=== PATIENT | male | born 1965 | race Caucasian/White ===

== ENCOUNTER 2017-05-08 21:12 | Emergency (ER) | payer OTHER ==
[2017-05-08 21:17] VITALS: BP 129/81; PULSE 78; RESP 18; TEMP 98.3; O2SAT 98; BMI 27.3
--- NOTE | 2017-05-08 21:33 | ED PDOC ---
Arrival/HPI <Amilcar Harris - Last Filed: 05/08/17 21:43> - General Historian: Patient <Bridget Wallis A - Last Filed: 05/08/17 22:44> - General Chief Complaint: Upper Extremity Problem/Injury Time Seen by Provider: 05/08/17 21:22 - History of Present Illness Narrative History of Present Illness (Text): 05/08/17 21:29 51yo male with no PMhx who present with complaint of left elbow pain s/p trauma a week ago. He notes that he hit his left elbow on the found when he fell a week ago. States it was healing well and he was applying topical abx to the abrasion on the elbow. Notes that he accidentally hit the elbow against his bathroom tile, while cleaning two days ago. Pain started again and area became swollen and red. He denies fever, chills, focal weakness, paresthesia, any other complaint. Did not take any medication. (Bridget Wallis A) Past Medical History - Provider Review Nursing Documentation Reviewed: Yes - Infectious Disease Hx of Infectious Diseases: None - Psychiatric Hx Substance Use: No - Anesthesia Hx Anesthesia: No <Bridget Wallis A - Last Filed: 05/08/17 22:44> Family/Social History - Physician Review Nursing Documentation Reviewed: Yes Family/Social History: Unknown Family HX Smoking Status: Never Smoked Hx Alcohol Use: Yes Frequency of alcohol use: Socially Hx Substance Use: No <Bridget Wallis A - Last Filed: 05/08/17 22:44> Allergies/Home Meds <KimberlyAmilcar - Last Filed: 05/08/17 21:43> <Bridget Wallis A - Last Filed: 05/08/17 22:44> Allergies/Adverse Reactions: Allergies No Known Allergies Allergy (Verified 05/08/17 21:17) Review of Systems - Physician Review All systems were reviewed & negative as marked: Yes - Review of Systems Constitutional: Normal Eyes: Normal ENT: Normal Respiratory: Normal Cardiovascular: Normal Gastrointestinal: Normal Genitourinary Male: Normal Musculoskeletal: Arthralgias (LEft elbow ) Skin: Normal Neurological: Normal Endocrine: Normal Hemo/Lymphatic: Normal Psychiatric: Normal <Bridget Wallis A - Last Filed: 05/08/17 22:44> Physical Exam Vital Signs Reviewed: Yes Temperature: Afebrile Blood Pressure: Normal Pulse: Regular Respiratory Rate: Normal Appearance: Positive for: Well-Appearing, Non-Toxic, Comfortable Pain Distress: None Mental Status: Positive for: Alert and Oriented X 3 - Systems Exam Head: Present: Atraumatic, Normocephalic Pupils: Present: PERRL Extroacular Muscles: Present: EOMI Conjunctiva: Present: Normal Mouth: Present: Moist Mucous Membranes Neck: Present: Normal Range of Motion Respiratory/Chest: Present: Clear to Auscultation, Good Air Exchange. No: Respiratory Distress, Accessory Muscle Use Cardiovascular: Present: Regular Rate and Rhythm, Normal S1, S2. No: Murmurs Abdomen: Present: Normal Bowel Sounds. No: Tenderness, Distention, Peritoneal Signs Back: Present: Normal Inspection Upper Extremity: Present: Normal ROM, NORMAL PULSES, Tenderness (Left elbow), Swelling (Left elbow), Erythema (Left elbow), Neurovascularly Intact, Other ( Healing abrasion noted to left elbow). No: Cyanosis, Edema, Temperature Abnormalties Lower Extremity: Present: Normal Inspection. No: Edema Neurological: Present: GCS=15, CN II-XII Intact, Speech Normal Skin: Present: Warm, Dry, Normal Color. No: Rashes Psychiatric: Present: Alert, Oriented x 3, Normal Insight, Normal Concentration <Bridget Wallis - Last Filed: 05/08/17 22:44> Vital Signs Temp Pulse Resp BP Pulse Ox 05/08/17 21:14 98.3 F 78 18 129/81 98 Medical Decision Making <Amilcar Harris - Last Filed: 05/08/17 21:43> <Bridget Wallis - Last Filed: 05/08/17 22:44> ED Course and Treatment: 05/08/17 22:32 Left elbow xray - No acute fracture/dislocation noted PT was started on Keflex and referred to his PMD. TRT ED for any new or worsening symptoms (Bridget Wallis) - RAD Interpretation Radiology Orders: 05/08/17 21:25 ELBOW LEFT 3 VIEWS ROUTINE [RAD] Stat - Medication Orders Current Medication Orders: Discontinued Medications Cephalexin Monohydrate (Keflex) 500 mg PO STAT STA PRN Reason: Protocol Stop: 05/08/17 21:29 Last Admin: 05/08/17 21:45 Dose: 500 mg Tramadol HCl (Ultram) 50 mg PO STAT STA Stop: 05/08/17 21:29 Last Admin: 05/08/17 21:45 Dose: 50 mg - PA / IT APPLICATION SUPPORT ANALYST / Resident Statement / has reviewed & agrees with the documentation as recorded. <Amilcar Harris - Last Filed: 05/08/17 21:43> Disposition/Present on Arrival <Amilcar Harris - Last Filed: 05/08/17 21:43> - Present on Arrival Any Indicators Present on Arrival: No History of DVT/PE: No History of Uncontrolled Diabetes: No Urinary Catheter: No History of Decub. Ulcer: No History Surgical Site Infection Following: None - Disposition Have Diagnosis and Disposition been Completed?: Yes Disposition Time: 22:20 Patient Plan: Discharge <Bridget Wallis - Last Filed: 05/08/17 22:44> - Disposition Diagnosis: Elbow contusion Disposition: HOME/ ROUTINE Patient Problems: Current Active Problems Problem Status Onset Elbow contusion Acute Condition: STABLE Discharge Instructions (ExitCare): Elbow Sprain (ED) Additional Instructions: Take medication as directed Follow up with your doctor Return to Ed for any new or worsening symptoms Prescriptions: Cephalexin [Keflex] 500 mg PO QID #28 capsule Naproxen [Naprosyn] 500 mg PO BID #20 tab Referrals: Leo Payan, [Primary Care Provider] - Follow up with primary
--- NOTE | 2017-05-09 08:08 | RAD ---
PROCEDURE: Radiographs of the left elbow. HISTORY: elbow pain s/p trauma COMPARISON: No prior. FINDINGS: BONES: Bone alignment and mineralization are normal. There is no acute fracture or bone destruction. JOINTS: Normal. No osteoarthritis. SOFT TISSUES: Normal. JOINT EFFUSION: None. OTHER FINDINGS: None IMPRESSION: No acute fracture or dislocation.
== END 2017-05-08 22:19 | disposition home or self-care (01) ==
LOC: ED 21:12
DX: S50.02XA Contusion of left elbow, initial encounter (principal); W22.8XXA Striking against or struck by other objects, initial encounter; Y93.E5 Activity, floor mopping and cleaning; Y92.002 Bathroom of unspecified non-institutional (private) residence as the place of occurrence of the external cause

== ENCOUNTER 2018-06-23 21:16 | Emergency (ER) | payer MEDICAID, OTHER ==
[2018-06-23 21:16] VITALS: BMI 27.3
[2018-06-23 21:38] VITALS: RESP 18; TEMP 98.2
[2018-06-23] MEDS: Naproxen 550 mg Tab PO STA (22:03)
--- NOTE | 2018-06-23 22:14 | ED PDOC ---
Arrival/HPI - General Chief Complaint: Finger,Hand,&Wrist Time Seen by Provider: 06/23/18 21:24 Historian: Patient - History of Present Illness Narrative History of Present Illness (Text): 06/23/18 22:06 52 yo M complaining of pain swelling and a clicking noise to both of his thumbs for the past several days. Patient states that initially started with his right thumb and now his left thumb is affected. 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 Otherwise reports no trauma, injury, fever, chills, other joint pain. Has no additional complaints. Of note, patient is L hand dominant. Past Medical History - Infectious Disease Hx of Infectious Diseases: None - Cardiac Hx Cardiac Disorders: No - Pulmonary Hx Respiratory Disorders: No - Neurological Hx Neurological Disorder: No - HEENT Hx HEENT Disorder: No - Renal Hx Renal Disorder: No - Endocrine/Metabolic Hx Endocrine Disorders: No - Hematological/Oncological Hx Blood Disorders: No - Integumentary Hx Dermatological Disorder: No - Musculoskeletal/Rheumatological Hx Musculoskeletal Disorders: Yes Hx Arthritis: Yes - Gastrointestinal Hx Gastrointestinal Disorders: No - Genitourinary/Gynecological Hx Genitourinary Disorders: No - Psychiatric Hx Psychophysiologic Disorder: No Hx Substance Use: No - Anesthesia Hx Anesthesia: No Family/Social History Family/Social History: No Known Family HX Smoking Status: Never Smoked Hx Alcohol Use: No Hx Substance Use: No Allergies/Home Meds Allergies/Adverse Reactions: Allergies No Known Allergies Allergy (Verified 02/10/18 16:21) Review of Systems - Review of Systems Constitutional: absent: Fatigue, Fevers Musculoskeletal: Arthralgias, Joint Swelling. absent: Back Pain, Neck Pain, Myalgias Skin: absent: Rash, Pruritis, Skin Lesions Physical Exam Vital Signs Temp Pulse Resp BP Pulse Ox 06/23/18 23:02 98.2 F 64 18 128/60 97 06/23/18 22:34 98.2 F 64 18 128/60 97 06/23/18 21:24 98.2 F 84 18 132/78 100 Temperature: Afebrile Blood Pressure: Normal Pulse: Regular Respiratory Rate: Normal Appearance: Positive for: Well-Appearing, Non-Toxic, Comfortable Pain Distress: Mild Mental Status: Positive for: Alert and Oriented X 3 - Systems Exam Upper Extremity: Present: Normal ROM, NORMAL PULSES, Neurovascularly Intact, Capillary Refill < 2s, Norm 2-Pt Discrimination, Other (+mild edema and mild tenderness to the PIP of both thumbs, +FROM with audible clicking nose with flexion and extension). No: Erythema, Temperature Abnormalties, Deformity Neurological: Present: GCS=15, CN II-XII Intact, Speech Normal, Motor Func Grossly Intact, Normal Sensory Function Skin: Present: Warm, Dry, Normal Color. No: Rashes Medical Decision Making ED Course and Treatment: 06/23/18 22:08 Plan : - XR b/l thumbs - Naprosyn XR b/l thumbs: no fracture, no dislocation, as read by PA XR results d/w the patient. Advised RICE. Pre-made thumb spica splint applied to b/l thumbs. Advised to follow up with ortho referral in 1-2 days without fail. Advised to take medication as prescribed. Return to the emergency room at any time for any new or worsening symptoms. Patient states he fully agrees with and understands discharge instructions. States that he agrees with the plan and disposition. Verbalized and repeated discharge instructions and plan. I have given the patient opportunity to ask any additional questions. - RAD Interpretation Radiology Orders: 06/23/18 21:56 HAND LEFT THUMB [RAD] Stat HAND RIGHT THUMB [RAD] Stat - Medication Orders Current Medication Orders: Discontinued Medications Naproxen (Anaprox Ds) 550 mg PO ONCE STA Stop: 06/23/18 21:57 Last Admin: 06/23/18 22:03 Dose: 550 mg - PA / RN ENDOSCOPY / Resident Statement MD/DO has reviewed & agrees with the documentation as recorded. Disposition/Present on Arrival - Present on Arrival Any Indicators Present on Arrival: No History of DVT/PE: No History of Uncontrolled Diabetes: No Urinary Catheter: No History of Decub. Ulcer: No History Surgical Site Infection Following: None - Disposition Have Diagnosis and Disposition been Completed?: Yes Diagnosis: Bilateral thumb pain Disposition: HOME/ ROUTINE Disposition Time: 22:45 Patient Plan: Discharge Condition: STABLE Discharge Instructions (ExitCare): Tenosynovitis, Trigger Finger (DC) Additional Instructions: Thank you for letting us take care of you today. You were treated for thumb pain. The emergency medical care you received today was directed at your acute symptoms. If you were prescribed any medication, please fill it and take as directed. It may take several days for your symptoms to resolve. Return to the Emergency Department if your symptoms worsen, do not improve, or if you have any other problems. Please contact your doctor in 2 days for re-evaluation and follow up / or call one of the physicians/clinics you have been referred to that are listed on the Patient Visit Information form that is included in your discharge packet. Bring any paperwork you were given at discharge with you along with any medications you are taking to your follow up visit. Our treatment cannot replace ongoing medical care by a primary care provider (PCP) outside of the emergency department. Thank you for allowing the [facility] team to be part of your care today. If you had an X-Ray : A Radiologist will review the ED reading if any change in treatment is needed we will contact you. Prescriptions: Meloxicam [Mobic] 15 mg PO DAILY #30 tab Referrals: Victorina Harris MD [Staff Provider] - Follow up with primary Forms: [employer] ([place]), WORK NOTE
[2018-06-23 22:36] VITALS: BP 128/60; PULSE 64; O2SAT 97
--- NOTE | 2018-06-24 09:32 | RAD ---
Date of service: 06/23/2018 PROCEDURE: Left Thumb radiographs. HISTORY: pain COMPARISON: None available TECHNIQUE: AP radiograph of the left hand, as well as spot oblique and lateral images of thumb were obtained. FINDINGS: LEFT THUMB: Unremarkable left 1st digit without acute displaced fracture identified. Remainder of the left hand (as seen on the AP view) grossly unremarkable. JOINTS: No dislocation. SOFT TISSUES: Unremarkable. No evidence of radiopaque foreign body. OTHER FINDINGS: None. IMPRESSION: No acute fracture identified.
--- NOTE | 2018-06-24 09:33 | RAD ---
Date of service: 06/23/2018 PROCEDURE: Right Thumb radiographs. HISTORY: pain COMPARISON: None. TECHNIQUE: AP radiograph of the right hand, as well as spot oblique and lateral images of thumb were obtained. FINDINGS: RIGHT THUMB: Unremarkable right 1st digit without acute displaced fracture identified. Remainder of the right hand (as seen on the AP view) grossly unremarkable. JOINTS: No dislocation. SOFT TISSUES: Unremarkable. No evidence of radiopaque foreign body. OTHER FINDINGS: None. IMPRESSION: No acute displaced fracture identified.
== END 2018-06-23 23:02 | disposition home or self-care (01) ==
LOC: ED 21:16
DX: M79.645 Pain in left finger(s) (principal); M79.644 Pain in right finger(s)

== ENCOUNTER 2018-10-13 22:47 | Emergency (ER) | payer MEDICAID ==
[2018-10-13 22:52] VITALS: BMI 28.8
[2018-10-13 22:54] VITALS: TEMP 97.6; O2SAT 99
[2018-10-13] MEDS ORDERED: Lidocaine 5% Patch TD STA (23:39)
--- NOTE | 2018-10-13 23:46 | ED PDOC ---
Arrival/HPI - General Chief Complaint: Hip Pain Time Seen by Provider: 10/13/18 22:59 Historian: Patient - History of Present Illness Narrative History of Present Illness (Text): 10/13/18 23:52 53 yo M reports 2 week h/o pain in the L lower back radiating to the L buttock, reports taking advil with some relief, however pain persist prompting ER visit. Otherwise: (-) paresthesias, (-) weakness, (-) acute bowel or bladder dysfu nction, (-) urinary symptoms, (-) abdominal pain, (-) trauma, (-) injury, (-) fall, (-) heavy lifting, (-) h/o IVDU, (-) fever. Has no history of prior back problem. PMD does not recall name Past Medical History - Infectious Disease Hx of Infectious Diseases: None - Cardiac Hx Cardiac Disorders: No - Pulmonary Hx Respiratory Disorders: No - Neurological Hx Neurological Disorder: No - HEENT Hx HEENT Disorder: No - Renal Hx Renal Disorder: No - Endocrine/Metabolic Hx Endocrine Disorders: No - Hematological/Oncological Hx Blood Disorders: No - Integumentary Hx Dermatological Disorder: No - Musculoskeletal/Rheumatological Hx Musculoskeletal Disorders: Yes Hx Arthritis: Yes - Gastrointestinal Hx Gastrointestinal Disorders: No - Genitourinary/Gynecological Hx Genitourinary Disorders: No - Psychiatric Hx Psychophysiologic Disorder: No Hx Substance Use: No - Anesthesia Hx Anesthesia: No Family/Social History Family/Social History: No Known Family HX Smoking Status: Never Smoked Hx Alcohol Use: No Hx Substance Use: No Allergies/Home Meds Allergies/Adverse Reactions: Allergies No Known Allergies Allergy (Verified 10/13/18 22:57) Review of Systems - Review of Systems Constitutional: absent: Fatigue, Fevers Cardiovascular: absent: Chest Pain, Palpitations Gastrointestinal: absent: Abdominal Pain, Stool Changes, Diarrhea, Vomiting Genitourinary Male: absent: Dysuria, Frequency, Hematuria Musculoskeletal: Arthralgias, Back Pain. absent: Neck Pain Skin: absent: Rash, Pruritis, Skin Lesions Neurological: absent: Headache, Dizziness Physical Exam Vital Signs Temp Pulse Resp BP Pulse Ox 10/13/18 22:51 97.6 F 73 20 132/87 99 Temperature: Afebrile Blood Pressure: Normal Pulse: Regular Respiratory Rate: Normal Appearance: Positive for: Well-Appearing, Non-Toxic, Comfortable Pain Distress: Mild Mental Status: Positive for: Alert and Oriented X 3 - Systems Exam Head: Present: Atraumatic, Normocephalic Pupils: Present: PERRL Extroacular Muscles: Present: EOMI Conjunctiva: Present: Normal Mouth: Present: Moist Mucous Membranes Neck: Present: Normal Range of Motion Respiratory/Chest: Present: Clear to Auscultation, Good Air Exchange. No: Respiratory Distress, Accessory Muscle Use Cardiovascular: Present: Regular Rate and Rhythm, Normal S1, S2. No: Murmurs Abdomen: No: Tenderness, Distention, Peritoneal Signs Back: Present: Normal Inspection, Other (+tenderness to the L sciatic notch). No: CVA Tenderness, Midline Tenderness, Pain with Leg Raise Upper Extremity: Present: Normal Inspection. No: Cyanosis, Edema Lower Extremity: Present: Normal Inspection. No: Edema Neurological: Present: GCS=15, CN II-XII Intact, Speech Normal Skin: Present: Warm, Dry, Normal Color. No: Rashes Psychiatric: Present: Alert, Oriented x 3, Normal Insight, Normal Concentration Medical Decision Making ED Course and Treatment: 10/13/18 23:49 Patient medicated with toradol IM, flexeril Po and lidoderm patch. On reevaluation, patient reports improvement of symptoms. On exam, patient remains awake alert and oriented 3 in no acute distress. Ambulatory with a steady gait. Advised to follow up with primary care physician in 1-2 days without fail. Advised to take medication as prescribed. Return to the emergency room at any time for any new or worsening symptoms. Patient states he fully agrees with and understands discharge instructions. States that he agrees with the plan and disposition. Verbalized and repeated discharge instructions and plan. I have given the patient opportunity to ask any additional questions. - Medication Orders Current Medication Orders: Cyclobenzaprine HCl (Flexeril) 10 mg PO STAT STA Stop: 10/13/18 23:40 Ketorolac Tromethamine (Toradol) 60 mg IM STAT STA Stop: 10/13/18 23:40 Lidocaine (Lidoderm) 1 ea TD STAT STA Stop: 10/13/18 23:40 - PA / BOOKKEEPING SERVICE SALES AGENT / Resident Statement MD/DO has reviewed & agrees with the documentation as recorded. Disposition/Present on Arrival - Present on Arrival Any Indicators Present on Arrival: No History of DVT/PE: No History of Uncontrolled Diabetes: No Urinary Catheter: No History of Decub. Ulcer: No History Surgical Site Infection Following: None - Disposition Have Diagnosis and Disposition been Completed?: Yes Diagnosis: Sciatica Disposition: HOME/ ROUTINE Disposition Time: 00:00 Patient Plan: Discharge Condition: STABLE Discharge Instructions (ExitCare): Sciatica (DC) Additional Instructions: Thank you for letting us take care of you today. You were treated for sciatica. The emergency medical care you received today was directed at your acute symptoms. If you were prescribed any medication, please fill it and take as directed. It may take several days for your symptoms to resolve. Return to the Emergency Department if your symptoms worsen, do not improve, or if you have any other problems. Please contact your doctor in 2 days for re-evaluation and follow up. Bring any paperwork you were given at discharge with you along with any medications you are taking to your follow up visit. Our treatment cannot replace ongoing medical care by a primary care provider (PCP) outside of the emergency department. Thank you for allowing the [facility] team to be part of your care today. Prescriptions: Cyclobenzaprine [Cyclobenzaprine HCl] 10 mg PO TID PRN #15 tab PRN Reason: Muscle Spasm Lidocaine 5% [Lidoderm] 1 ea TD Q12H PRN #20 patch PRN Reason: Pain, Moderate (4-7) Meloxicam [Mobic] 15 mg PO DAILY #20 tab Forms: [employer] (Polish), WORK NOTE
[2018-10-14 00:15] VITALS: BP 142/86; PULSE 89; RESP 18
== END 2018-10-14 00:06 | disposition home or self-care (01) ==
LOC: ED 22:47
DX: M54.30 Sciatica, unspecified side (principal)
CPT/HCPCS: 96372; 99283; J1885